=== PATIENT | female | born 1990 ===

== ENCOUNTER 2018-07-23 15:43 | Outpatient (CLI) | payer OTHER | END 2018-07-23 15:57 | disposition home or self-care (01) | LOC: LAB 15:43 → EDBD 15:43 → LAB 15:57 | DX: I10 Essential (primary) hypertension (principal); D64.89 Other specified anemias; N39.0 Urinary tract infection, site not specified ==

== ENCOUNTER 2018-08-16 06:38 | Day surgery (SDC) | payer OTHER | END 2018-08-16 16:45 | disposition home or self-care (01) | LOC: CIR.AMB 06:38 | DX: N64.82 Hypoplasia of breast (principal) ==

== ENCOUNTER 2018-12-22 10:49 | Outpatient (CLI) | payer OTHER | END 2018-12-22 13:20 | disposition HB | LOC: LAB 10:49 | DX: E78.4 Other hyperlipidemia (principal); R42 Dizziness and giddiness; Z00.00 Encounter for general adult medical examination without abnormal findings ==

== ENCOUNTER → 2019-02-09 | Outpatient (CLI) | payer OTHER | END | disposition home or self-care (01) | LOC: LAB 11:02 | DX: E03.8 Other specified hypothyroidism (principal); E78.00 Pure hypercholesterolemia, unspecified; Z00.00 Encounter for general adult medical examination without abnormal findings; I10 Essential (primary) hypertension; N91.0 Primary amenorrhea; E55.9 Vitamin D deficiency, unspecified; Z21 Asymptomatic human immunodeficiency virus [HIV] infection status; R79.89 Other specified abnormal findings of blood chemistry; Z11.4 Encounter for screening for human immunodeficiency virus [HIV]; B96.29 Other Escherichia coli [E. coli] as the cause of diseases classified elsewhere ==

== ENCOUNTER 2019-02-14 10:40 | Outpatient (CLI) | payer OTHER | END 2019-02-14 10:42 | disposition home or self-care (01) | LOC: SONOGRAMA 10:40 → MAMO-SONO 13:15 | DX: N94.0 Mittelschmerz (principal); R10.2 Pelvic and perineal pain; N94.89 Other specified conditions associated with female genital organs and menstrual cycle ==

== ENCOUNTER 2022-10-30 09:50 | Outpatient (CLI) | payer OTHER | END 2022-10-30 10:00 | disposition home or self-care (01) | LOC: RAD 09:50 | PROVIDERS: ATTEND General Practice | DX: M54.51 Vertebrogenic low back pain (principal) ==